=== PATIENT | female | born 1970 | race Caucasian/White ===

== ENCOUNTER 2023-12-29 01:04 | Emergency (ER) | payer OTHER ==
[2023-12-29 01:18] VITALS: PULSE 77
[2023-12-29] MEDS: cefTRIAXone 1 GM, Lidocaine 1% 2.1 ML IM ONE (02:51)
[2023-12-29] MEDS ORDERED: Ondansetron 4 MG Tab.DIS ONE (02:58)
[2023-12-29 03:10] VITALS: BP 108/70
== END 2023-12-29 03:13 | disposition home or self-care (01) ==
LOC: JD.ED 01:04
DX: J10.1 Influenza due to other identified influenza virus with other respiratory manifestations (principal); J98.4 Other disorders of lung; Z90.49 Acquired absence of other specified parts of digestive tract; Z90.710 Acquired absence of both cervix and uterus; Z79.899 Other long term (current) drug therapy; Z88.2 Allergy status to sulfonamides; Z88.5 Allergy status to narcotic agent; Z91.041 Radiographic dye allergy status
CPT/HCPCS: 71046; 96372; 99284; J0696; J3490